=== PATIENT | female | born 1965 | race Caucasian/White ===

== ENCOUNTER 2019-08-25 19:59 | Emergency (ER) | payer OTHER, SELFPAY ==
[2019-08-25 20:15] VITALS: BP 147/73; PULSE 75; RESP 20; TEMP 37.4; O2SAT 100
[2019-08-25] MEDS: LIDOCAINE HCL 1% LOCAL INJ 20 ML VIAL INFILTRATE (20:25)
[2019-08-25] MEDS: TETANUS,DIPHTHERIA,AC PERTUSSIS ADULT 0.5 ML (ADACEL) IM (20:25)
[2019-08-25] MEDS: cefTRIAXone 250 MG VIAL 1000 MG IM (20:25)
--- NOTE | 2019-08-25 20:25 | ED.LOWEXIN ---
HPI - Extremity Injury (Lower) General Chief Complaint: Extremity Injury, Lower Stated Complaint: L/leg shine pn History of Present Illness HPI Narrative: This is a 53-year-old female that hit her left suarez approximately a week ago with progressively gotten red and warm patient has been applying heat to the area there is a small area that is enlarged it looks like it may want to open. Patient states that is causing pain in her leg it is over the past 2 days it is continued to get worse she is Related Data Home Medications Medication Instructions Recorded Confirmed norgestimate-ethinyl estradiol 1 tablet PO DAILY 08/25/19 08/25/19 [Tri-Linyah] Allergies Allergy/AdvReac Type Severity Reaction Status Date / Time No Known Allergies Allergy Mild Verified 08/25/19 20:17 Review of Systems Review of Systems: Narrative: CONSTITUTIONAL: Denies fever, chills, or sweats. EYES: Denies visual changes, redness, or discharge. ENT: Denies rhinorrhea, congestion, sore throat, or otalgia. CARDIOVASCULAR:Denies chest pain, palpitations, or edema. RESPIRATORY: Denies cough or dyspnea. GASTROINTESTINAL: Denies abdominal pain, nausea, vomiting, or diarrhea. GENITOURINARY: Denies dysuria or hematuria. SKIN:[Denies rash or itching. left suarez pain and redness and warm to touch MUSCULOSKELETAL:Denies back pain, joint pain, or myalgia. NEUROLOGIC: Denies headache, numbness, or weakness. PSYCHIATRIC:Denies anxiety or depression PMFSH Family History Family History (Updated 01/17/16 @ 23:19 by DOCTOR UNKNOWN) Mother Hypertension Family history of malignant neoplasm of breast in first degree relative Father Family history of gastrointestinal disorder Social History Social History Alcohol intake: current Comments At time as signature, I have reviewed and agree with nursing past medical, social, surgical and family history. Please see nursing chart for further information. There is no relevant family history pertinent to the presenting complaint. Exam Narrative: Exam Narrative: GENERAL:Well-appearing, well-nourished, and in no acute distress. HEAD:Normocephalic, atraumatic. EYES: PERRLA and EOMI. ENT: Nares clear, no rhinorrhea or epistaxis. Mucous membranes moist. NECK: Supple. CHEST: Clear to auscultation. No respiratory distress. HEART: Regular rate and rhythm. No murmur heard. Normal peripheral pulses. ABDOMEN: Soft, nontender, nondistended, normal active bowel sounds. EXTREMITIES: Normal range of motion. positive edema.erythema with warmth and small on the suarez of the right leg. SKIN: Warm, dry, no rash. NEURO: No focal deficits. Alert and oriented x3. Course Vital Signs Vital signs: Vital Signs Temperature 99.3 F 08/25/19 20:15 Pulse Rate 75 08/25/19 20:15 Respiratory Rate 20 08/25/19 20:15 Blood Pressure 147/73 H 08/25/19 20:15 Pulse Oximetry 100 08/25/19 20:15 Temperature 99.3 F 08/25/19 20:15 Pulse Rate 75 08/25/19 20:15 Respiratory Rate 20 08/25/19 20:15 Blood Pressure 147/73 H 08/25/19 20:15 Pulse Oximetry 100 08/25/19 20:15 Discharge Plan Discharge Clinical Impression: Cellulitis and abscess of left leg Patient Disposition: Home, Self-Care Condition: Stable Instructions: Antibiotic Form, Cellulitis (ED) Additional Instructions: Make sure you elevate your leg as much as possible You may use ice do not place directly on the skin and no more than 20 minutes at a time. Prescriptions: New sulfamethoxazole-trimethoprim 800-160 mg tablet 1 tablet PO Q12H 10 Days Qty: 20 RF: 0 ibuprofen 800 mg tablet 800 mg PO Q6H PRN (Reason: pain) Qty: 20 RF: 0 No Action norgestimate-ethinyl estradiol [Tri-Linyah] 0.18/0.215/0.25 mg-35 mcg (28) tablet 1 tablet PO DAILY RF: 0 Follow-up/Referrals: Alpesh Beyer DO [Primary Care Provider] - Time of Disposition: Discharge Date/Time: 08/25/19 20:35
== END 2019-08-25 20:35 | disposition home or self-care (01) ==
PROVIDERS: Emergency Provider Nurse Practitioner Family; PCP Internal Medicine
DX: L03.116 Cellulitis of left lower limb (principal); L02.416 Cutaneous abscess of left lower limb; Z23 Encounter for immunization
CPT/HCPCS: 90471; 90715; 96372; 99213; G0463; J0696

== ENCOUNTER 2020-03-27 08:18 | Outpatient (CLI) | payer OTHER, SELFPAY ==
--- NOTE | ~2020-03-27 | MM_ITS ---
EXAMINATION: MM screening foster BI w ana HISTORY: Screening TECHNIQUE: Craniocaudal and mediolateral oblique 3-D tomosynthesis images were obtained and synthetic 2-D images were generated. CAD analysis was submitted and interpreted. COMPARISON: Comparison to multiple prior studies sequentially, with oldest reviewed study dated 11/11. BREAST PARENCHYMAL COMPOSITION: The breasts are heterogeneously dense, which may obscure small masses . FINDINGS: There is developing asymmetry laterally in the left breast on CC view. There are stable rig ht breast calcifications. There is no evidence of suspicious mass, calcification, or architectural di stortion to suggest malignancy in either breast. There has been no suspicious interval change. IMPRESSION: 1. Developing left breast asymmetry. 2. Additional mammographic views and possible breast ultrasound are recommended. BI-RADS Category 0: Incomplete: Needs additional imaging evaluation. Reviewed, dictated and finalized at location A. IMPRESSION: 1. Developing left breast asymmetry. 2. Additional mammographic views and possible breast ultrasound are recommended . BI-RADS Category 0: Incomplete: Needs additional imaging evaluation.
== END 2020-03-27 08:19 | disposition home or self-care (01) ==
LOC: ANHIMG 08:21
PROVIDERS: PCP Internal Medicine; Visit Provider Obstetrics & Gynecology
DX: Z12.31 Encounter for screening mammogram for malignant neoplasm of breast (principal); R92.8 Other abnormal and inconclusive findings on diagnostic imaging of breast
CPT/HCPCS: 77063; 77067

== ENCOUNTER 2020-04-11 13:47 | Outpatient (CLI) | payer OTHER, SELFPAY ==
--- NOTE | ~2020-04-11 | MMUS_ITS ---
EXAMINATION: MM diagnostic foster LT w ana, US breast LT limited HISTORY: Developing left breast asymmetry in the lateral left breast on screening CC view of 0 TECHNIQUE: Additional 3-D tomosynthesis images of were performed and synthetic 2-D images were genera shane. CAD analysis was submitted and interpreted. High resolution left upper outer quadrant and lower outer quadrant breast ultrasound was performed. COMPARISON: 03/27/2020, 12/23/2018, 11/05/2017, 10/28/2016 bilateral digital screening mammogram examinati ons BREAST PARENCHYMAL COMPOSITION: The breasts are heterogeneously dense, which may obscure small masses . FINDINGS: MAMMOGRAPHIC FINDINGS: There are some likely benign microcalcifications posteriorly in the outer left breast. Upper outer quadrant and lower outer quadrant left breast ultrasound examination is performe d. No suspicious mass or architectural distortion, malignant calcification, skin thickening or retractio n of either breast is noted otherwise. ULTRASOUND: There is dense echotexture of the left breast. There are scattered sonolucent and hypoechoic areas wi thout internal vascularity or suspicious shadowing, the largest situated at 4:00, measuring 4 x 8 x 9 mm. No suspicious solid mass lesion or shadowing is evident. IMPRESSION: 1. Probable benign calcifications and probable benign scattered subcentimeter sonolucent and hypoecho ic lesions of left breast 2. 6 month diagnostic left mammogram and left breast ultrasound examination are recommended BI-RADS category 3, probably benign findings. Reviewed, dictated and finalized at location A. IMPRESSION: 1. Probable benign calcifications and probable benign scattered subcentimeter s onolucent and hypoechoic lesions of left breast 2. 6 month diagnostic left mammogram and left breast ultrasound examination are recommended BI-RADS category 3, probably benign findings.
== END 2020-04-11 13:48 | disposition home or self-care (01) ==
LOC: ANHIMG 13:49
PROVIDERS: PCP Internal Medicine; Visit Provider Obstetrics & Gynecology
DX: R92.8 Other abnormal and inconclusive findings on diagnostic imaging of breast (principal)
CPT/HCPCS: 76642; 77061; 77065; G0279

== ENCOUNTER 2020-04-22 13:31 | Outpatient (CLI) | payer OTHER, SELFPAY ==
[2020-04-25 12:41] LABS: Testosterone Free 0.7 pg/mL (0.1-6.4); Testosterone Total 6 ng/dL (2-45)
[2020-04-26 14:21] LABS: FSH 152.8 mIU/mL (***)
== END 2020-04-22 13:32 | disposition home or self-care (01) ==
PROVIDERS: PCP Internal Medicine; Visit Provider Obstetrics & Gynecology
DX: N95.1 Menopausal and female climacteric states (principal)
CPT/HCPCS: 36415; 83001; 84402; 84403

== ENCOUNTER 2020-09-11 08:47 | Outpatient (CLI) | payer OTHER, BC, SELFPAY ==
[2020-09-11 09:24] LABS: Alanine Aminotransferase 18 U/L (4-35); Alkaline Phosphatase 35 U/L (38-126); Anion Gap 3 mmol/L (8-16); Aspartate Amino Transferase 30 U/L (14-36); Bilirubin,Total 0.3 mg/dL (0.2-1.3); Blood Urea Nitrogen 19 mg/dL (7-17); Calcium 8.7 mg/dL (8.4-10.2); Carbon Dioxide 30 mmol/L (22-30); Chloride 106 mmol/L (98-107); Cholesterol 174 mg/dL (0-200); Estimated Glomerular Filt Rate > 60; Glucose 101 mg/dL (65-105); HDL Direct 69 mg/dL; Sodium 139 mmol/L (137-145); Triglycerides 33 mg/dL (<150)
[2020-09-11 09:35] LABS: LDL Cholesterol Direct 78 mg/dL
[2020-09-11 10:17] LABS: Vitamin D 25 Hydroxy 80.9 ng/mL
== END 2020-09-11 08:48 | disposition home or self-care (01) ==
PROVIDERS: PCP Internal Medicine; Visit Provider Internal Medicine
DX: Z13.21 Encounter for screening for nutritional disorder (principal); Z00.00 Encounter for general adult medical examination without abnormal findings
CPT/HCPCS: 36415; 80053; 80061; 82306

== ENCOUNTER 2020-10-21 13:32 | Outpatient (CLI) | payer OTHER, BC, SELFPAY ==
--- NOTE | ~2020-10-21 | MMUS_ITS ---
EXAMINATION: MM diagnostic foster LT w ana, US breast LT limited HISTORY: Follow-up left breast calcifications and mass. TECHNIQUE: Additional 3-D tomosynthesis images of the left breast were performed and synthetic 2-D im ages were generated. CAD analysis was submitted and interpreted. High resolution Limited left breast ultrasound was performed. COMPARISON: Comparison to multiple prior studies sequentially, with oldest reviewed study dated 11/05. BREAST PARENCHYMAL COMPOSITION: The breasts are heterogenously dense, which may obscure small masses. FINDINGS: MAMMOGRAPHIC FINDINGS: There are clustered calcifications in the upper outer quadrant of the left breast which have are rela tively monomorphic appearance and some of which layer on the medial lateral view and MLO view, most l ikely benign milk of calcium. The ULTRASOUND: Limited left breast ultrasound: At 6:00, 2 cm from the nipple, there is a 5 mm complicated cyst. At 4 :00 in the subareolar location there is a 3 mm cyst. At 3:00, 4 cm from the nipple there is an oval h ypoechoic mass with circumscribed margins, parallel oriented dictation, no posterior features, most l ikely benign. At 3:00, 4 cm from the nipple there is a 9 mm cyst. At 2:00, 6 cm from the nipple there is a 3 mm cyst. At 2:00, 4 cm from the nipple there is a 5 mm cyst. At 2:00, 3 cm there is 3 mm cyst . At 2:00, 3 cm from the nipple there is a 3 mm cyst. IMPRESSION: 1. Probable benign left breast findings. 2. Recommend 6 month follow-up diagnostic bilateral mammogram and left breast ultrasound recommended BI-RADS category 3, probably benign findings. Reviewed, dictated and finalized at location A. IMPRESSION: 1. Probable benign left breast findings. 2. Recommend 6 month follow-up diagnostic bilateral mammogram and left breast u ltrasound recommended BI-RADS category 3, probably benign findings.
== END 2020-10-21 13:33 | disposition home or self-care (01) ==
LOC: ANHIMG 13:33
PROVIDERS: PCP Internal Medicine; Visit Provider Obstetrics & Gynecology
DX: N63.25 Unspecified lump in the left breast, overlapping quadrants (principal); N60.02 Solitary cyst of left breast
CPT/HCPCS: 76642; 77061; 77065; G0279

== ENCOUNTER 2021-01-20 14:42 | Outpatient (CLI) | payer OTHER, BC, SELFPAY ==
--- NOTE | ~2021-01-20 | DEXA_ITS ---
Bone Density Report Name: Elmira Suarez Age: 55 Sex: Female Ethnicity: White Date of : 1965 Indication: osteoporosis; height loss; postmenopausal Referring Provider: JAZLYN KENDALL Study: Bone densitometry was performed. Exam Date: January 20, 2021 Accession number: [id number] Bone Density: Region BMD T-score Z-score Classification AP Spine (L1-L4) 0.710 -3.1 -1.9 Osteoporosis Femoral Neck (Left) 0.598 -2.3 -1.2 Osteopenia Total Hip (Left) 0.723 -1.8 -1.1 Osteopenia Total Hip Bilateral Avg 0.730 -1.8 -1.1 Osteopenia Femoral Neck (Right) 0.593 -2.3 -1.2 Osteopenia Total Hip (Right) 0.737 -1.7 -1.0 Osteopenia World Health Organization criteria for BMD impression classify patients as: Normal (T-score at or above -1.0), Osteopenia (T-score between -1.0 and -2.5), or Osteoporosis (T-score at or below -2.5). 10-year Fracture Risk: FRAX not reported because: Premenopausal woman Some T-score for Spine Total or Hip Total or Femoral Neck at or below -2.5 Previous Exams: Region Exam Age BMD T-score BMD Change BMD Change Date g/cm2 vs Baseline vs Previous AP Spine(L1-L4) 01/20/2021 55 0.710 -3.1 -0.059(-7.7%)* -0.059(-7.7%)* 12/23/2018 52 0.769 -2.5 Total Hip(Left) 01/20/2021 55 0.723 -1.8 -0.088(-10.9%) -0.088(-10.9%) 12/23/2018 52 0.811 -1.1 Total Hip(Right) 01/20/2021 55 0.737 -1.7 -0.055(-7.0%)* -0.055(-7.0%)* 12/23/2018 52 0.792 -1.2 *Denotes significance at 95% confidence level, LSC for AP Spine = 0.022 g/cm2, LSC for Total Hip = 0.027 g/cm2 Clinical Information Provided by Patient: Has used the following medications: Calcium Patient maximum height was 67 Drinks caffeinated beverages Onset of menses at age 11 Premenopausal Number of children 1 Impression: The patient's bone mass is within expected range for age, gender and ethnicity. The BMD for the AP Spine(L1-L4) decreased, changing by -7.7% since the last DXA exam. The BMD for the Total Hip(Left) decreased, changing by -10.9% since the last DXA exam. The BMD for the Total Hip(Right) decreased, changing by -7.0% since the last DXA exam. Discussion: BONE DENSITY IS WITHIN EXPECTED LIMITS FOR AGE, SEX AND RACE. Bone density is within expected limits for age, sex and race at all sites measured. The patient should follow a healthful lifestyle (good nutrition with adequate calcium and vitamin D, and appropriate weight-bearing exercise). Follow-Up: Consider a repeat BMD and Vertebra
== END 2021-01-20 14:43 | disposition home or self-care (01) ==
LOC: ANHIMG 14:47
PROVIDERS: PCP Internal Medicine; Visit Provider Internal Medicine
DX: Z78.0 Asymptomatic menopausal state (principal); M85.89 Other specified disorders of bone density and structure, multiple sites
CPT/HCPCS: 77080

== ENCOUNTER 2021-04-30 12:48 | Outpatient (CLI) | payer OTHER, SELFPAY ==
--- NOTE | ~2021-04-30 | MMUS_ITS ---
EXAMINATION: MM diagnostic foster BI w ana, US breast BI complete HISTORY: Probable benign left breast findings reported on 11/07/2020 diagnostic left mammogram and [place] ited left breast ultrasound TECHNIQUE: ML, MLO and craniocaudal 3-D tomosynthesis images of both breasts were performed and synth etic 2-D images were generated. Magnification views of both breasts. CAD analysis was submitted and i nterpreted. High resolution bilateral complete breast ultrasound including all 4 quadrants and subare olar area of was performed. COMPARISON: 11/07/2020 and 04/11/2020 diagnostic left mammogram and limited left breast ultrasound exa minations 03/27/2020, 12/23/2018 bilateral screening mammogram examinations Breast parenchymal composition: There are scattered areas of fibroglandular density. FINDINGS: MAMMOGRAPHIC FINDINGS: Bilateral benign calcifications again noted. No suspicious mass or architectural distortion, malignan t calcification, skin thickening or retraction or significant new or developing density is detected. ULTRASOUND: No suspicious solid lesion or suspicious shadowing of either breast is detected. Right br east: 10:00 4 cm from nipple: 4.2 x 2.4 mm cyst Left breast: 2.6 x 2.5 mm cyst at 12:00 subareolar area. 1:00 2 cm from nipple: Approximately 2 mm cyst 1:00 4 cm from nipple: 1.8 mm cyst 2:00 4 cm from nipple: 9 x 2.5 mm cyst 3:00 6 cm from nipple: 6.2 x 3.7 mm multilocular cyst 5:00 3 cm from nipple: Parallel circumscribed hypoechoic 9.4 x 3.8 x 10.8 mm lesion without internal vascularity or posterior shadowing. The appearance is benign. IMPRESSION: 1. Benign findings; no mammographic evidence of malignancy 2. Routine annual mammographic screening is recommended BI-RADS Category 2: Benign finding(s). Reviewed, dictated and finalized at location A. LATHE OPERATOR IMPRESSION: 1. Benign findings; no mammographic evidence of malignancy 2. Routine annual mammographic screening is recommended BI-RADS Category 2: Benign finding(s).
== END 2021-04-30 12:49 | disposition home or self-care (01) ==
LOC: ANHIMG 12:49
PROVIDERS: PCP Internal Medicine; Visit Provider Obstetrics & Gynecology
DX: N63.23 Unspecified lump in the left breast, lower outer quadrant (principal); N60.02 Solitary cyst of left breast
CPT/HCPCS: 76641; 77062; 77066; G0279

== ENCOUNTER 2021-09-24 08:04 | Outpatient (CLI) | payer BC, SELFPAY ==
[2021-09-24 08:29] LABS: Basophils Absolute Auto 0.1 K/mm3 (0.0-0.1); Basophils Percent Auto 1.4 % (0.2-1.2); Eosinophils Absolute Auto 0.4 K/mm3 (0-0.3); Hematocrit 38.9 % (37.0-47.0); Hemoglobin 12.7 g/dL (12.0-15.0); Immature Granulocyte Absolute 0.01 K/mm3 (0.00-0.031); Immature Granulocyte Percent A 0.2 % (0-0.5); Lymphocytes Absolute Auto 2.28 K/mm3 (0.9-3.2); Lymphocytes Percent Auto 35.1 % (18.3-44.2); Mean Corpuscular HGB Conc 32.6 g/dl (32-36); Mean Corpuscular Hemoglobin 30.9 pg (26-34); Mean Corpuscular Volume 94.6 fl (80-100); Mean Platelet Volume 9.1 fl (7.4-10.4); Monocytes Absolute Auto 0.6 K/mm3 (0.1-0.6); Monocytes Percent Auto 9.1 % (2.6-8.5); Neutrophils Absolute Auto 3.1 K/mm3 (1.3-6.7); Neutrophils Percent Auto 48.2 % (45.5-73.1); Platelet Count Result 259 k/mm3 (150-375); Red Blood Count 4.11 M/mm3 (4.2-5.4); White Blood Count 6.5 K/mm3 (4.5-10.0)
[2021-09-24 08:44] LABS: Cholesterol 173 mg/dL (0-200); HDL Direct 64 mg/dL; Triglycerides 42 mg/dL (<150)
[2021-09-24 09:03] LABS: LDL Cholesterol Direct 77 mg/dL
[2021-09-24 09:27] LABS: Vitamin D 25 Hydroxy 89.9 ng/mL
== END 2021-09-24 08:05 | disposition home or self-care (01) ==
LOC: ANHLAB 08:07
PROVIDERS: PCP Internal Medicine; Visit Provider Internal Medicine
DX: E55.9 Vitamin D deficiency, unspecified (principal); E78.5 Hyperlipidemia, unspecified; Z00.00 Encounter for general adult medical examination without abnormal findings
CPT/HCPCS: 36415; 80061; 82306; 85025

== ENCOUNTER 2022-04-02 01:56 | Day surgery (SDC) | payer BC, SELFPAY ==
[2022-03-18 11:22] VITALS: BMI 25.7
[2022-04-02 07:17] VITALS: BP 122/85; PULSE 68; RESP 20; TEMP 36.7; O2SAT 100
[2022-04-02] MEDS: LACTATED RINGERS 1,000 ML 150 ML IV CONT (07:26)
--- NOTE | 2022-04-02 07:53 | PM.HPGS ---
History of Present Illness History of Present Illness Consent: Risks, benefits, and alternatives have been discussed and questions answered. Patient agrees to proceed with procedure. Chief complaint: dysphagia Narrative: Elmira Suarez is a 56 year old female Presents for EGD. Patient has a history of difficulty swallowing of food catching in mid substernal portion the chest. This has worsened over recent months. Patient does have a prior history of distal esophageal web dilated in 2005. For a period of time after that she was maintained on proton pump inhibitor therapy. This eventually was stopped after 10 years. She denies any significant history of heartburn reflux presently. Patient presents today for EGD to assess difficulty swallowing. Review of Systems Review of Systems: Review of systems noncontributory. [facility] Past Medical History Medical History Acid reflux History of 1977 Normal colonoscopy Osteopenia Osteoporosis Vaginal delivery x1 Surgical History Surgical History H/O breast biopsy [place] teeth removed Family History Family History Mother Hypertension Family history of malignant neoplasm of breast in first degree relative Father Family history of gastrointestinal disorder Grandparent Carcinoma, lung Social History Social History (Updated 02/25/22 @ 08:30 by Chelsea Blair [facility]) Smoking packs per day: 1 Smoking cigarettes per day: 20.0 Years smoked: 15 Smoking pack-years: 15.00 Smoking status: Former smoker Tobacco type: cigarettes Second hand tobacco smoke exposure: No Smoking end date: 02/20/96 Alcohol intake: current Drinks per week: 7 Alcohol use details: glass of wine every day usually Substance use: never Substance use type: does not use Living arrangements: with family Spiritual care concerns: No Meds Home Medications and Allergies Home Medications Medication Instructions Recorded Confirmed Type ascorbate calcium (vitamin C) 500 500 mg PO DAILY 09/25/20 03/18/22 History mg tablet calcium carbonate 600 mg calcium 333 mg PO DAILY 09/25/20 03/18/22 History (1,500 mg) tablet (Calcium) microfibril. collagen hemostat 1 applic topical 2XW 09/25/20 03/18/22 History multivitamin (Multiple Vitamins 1 tablet PO DAILY 09/25/20 03/18/22 History tablet) glucosamine 750 mg-chondroit 100 1 tablet PO BID 10/01/21 03/18/22 History mg-msm-D3 25 [id number] bor tablet raloxifene 60 mg tablet 60 mg PO DAILY 02/25/22 03/18/22 History Allergies Allergy/AdvReac Type Severity Reaction Status Date / Time codeine AdvReac Intermediate Dizziness Verified 04/02/22 07:16 Vital Signs Vital Signs - 24 hr 04/02/22 07:17 Temperature 98.1 F Pulse Rate 68 Respiratory Rate 20 Blood Pressure 122/85 Pulse Oximetry 100 Oxygen Delivery Room Air Exam Narrative: Physical exam reveals patient be alert. Vital signs stable. HEENT exam is unremarkable. Patient is anicteric. Lungs are clear to auscultation and percussion. Heart is without murmur or extra sounds. Abdomen bowel sounds are present soft nontender with no hepatosplenomegaly. Assessment and Plan Assessment and plan (1) Dysphagia: Code(s): R13.10 - Dysphagia, unspecified Status: Acute Assessment and Plan: Patient presents with difficulty swallowing. Food catches mid substernal portion the chest. Patient has a history of esophageal web secondary to acid reflux in the past. Plan is for EGD to assess more thoroughly. and possibly for dilatation. Further recommendations may be given after endoscopy
--- NOTE | 2022-04-02 08:09 | WPDANESEPPF ---
Anes - Initial Pre Proc Eval Procedure: Operation Date: 04/02/22 08:30 Proposed Procedures p Esophagogastroduodenoscopy - Corey Wiggins MD Date/Time: 04/02/22 08:09 Surgeon: Corey Wiggins MD Pre Op Diagnosis: dysphagia Patient Data Age: 56 Gender: F Height: 1.65 m Weight: 71.6 kg Last Vital Signs Temp 98.1 F 04/02/22 07:17 Pulse 68 04/02/22 07:17 Resp 20 04/02/22 07:17 BP 122/85 04/02/22 07:17 Pulse Ox 100 04/02/22 07:17 O2 Del Method Room Air 04/02/22 07:17 Allergies Allergy/AdvReac Type Severity Reaction Status Date / Time codeine AdvReac Intermediate Dizziness Verified 04/02/22 07:16 Home Medications Medication Instructions Recorded Confirmed Type ascorbate calcium (vitamin C) 500 500 mg PO DAILY 09/25/20 03/18/22 History mg tablet calcium carbonate 600 mg calcium 333 mg PO DAILY 09/25/20 03/18/22 History (1,500 mg) tablet (Calcium) microfibril. collagen hemostat 1 applic topical 2XW 09/25/20 03/18/22 History multivitamin (Multiple Vitamins 1 tablet PO DAILY 09/25/20 03/18/22 History tablet) glucosamine 750 mg-chondroit 100 1 tablet PO BID 10/01/21 03/18/22 History mg-msm-D3 25 xju-gobl-mno bor tablet raloxifene 60 mg tablet 60 mg PO DAILY 02/25/22 03/18/22 History Patient hx anesthesia problems: none Family hx anesthesia problems: none Results Review: All pre-operative results and documents have been reviewed as part of the pre-operative evaluation. [facility] Past Medical History Medical History Acid reflux History of 1977 Normal colonoscopy Osteopenia Osteoporosis Vaginal delivery x1 Surgical History Surgical History H/O breast biopsy [place] teeth removed Family History Family History Mother Hypertension Family history of malignant neoplasm of breast in first degree relative Father Family history of gastrointestinal disorder Grandparent Carcinoma, lung Social History Social History (Updated 02/25/22 @ 08:30 by Chelsea Blair [facility]) Smoking packs per day: 1 Smoking cigarettes per day: 20.0 Years smoked: 15 Smoking pack-years: 15.00 Smoking status: Former smoker Tobacco type: cigarettes Second hand tobacco smoke exposure: No Smoking end date: 02/20/96 Alcohol intake: current Drinks per week: 7 Alcohol use details: glass of wine every day usually Substance use: never Substance use type: does not use Living arrangements: with family Spiritual care concerns: No Anes - Eval Final PreProcedure Day of Procedure 04/02/22 08:09 Patient weight: normal Heart: regular rate and rhythm Lungs: clear to auscultation Airway: Mallampati scale class II Neurological: alert and oriented Last oral intake: >/= 8 hours ASA classification: II Emergent: no Anesthetic plan: proceed Anesthesia type and monitoring: general GIVS and standard monitoring Results Review: All pre-operative results and documents have been reviewed as part of the pre-operative evaluation. Informed Consent: The patient's anesthetic plan and its attendant risks and benefits were discussed with the patient/family/POA. Questions were solicited and answers provided to the satisfaction of the patient/family/POA.
[2022-04-02] MEDS: BENZOCAINE (*SP) 60 ML SPRAY CAN (HURRICAINE) 1 SPRAY MUCOUS MEM (08:34)
[2022-04-02 08:42] VITALS: BP 102/81; PULSE 67; RESP 24; O2SAT 99
[2022-04-02 08:52] VITALS: BP 107/64; PULSE 63; RESP 21; O2SAT 99
[2022-04-02 09:02] VITALS: BP 107/64; PULSE 60; RESP 21; O2SAT 99
== END 2022-04-02 09:11 | disposition home or self-care (01) ==
PROVIDERS: PCP Internal Medicine; Visit Provider Internal Medicine Gastroenterology
PROC: 0DJ08ZZ Inspection of Upper Intestinal Tract, Via Natural or Artificial Opening Endoscopic (ICD-10-PCS; CPT 43235; principal; 2022-04-02 08:30)
DX: Q39.4 Esophageal web (principal); K21.9 Gastro-esophageal reflux disease without esophagitis; M81.0 Age-related osteoporosis without current pathological fracture; Z87.891 Personal history of nicotine dependence
CPT/HCPCS: 43450; 43235; J2704; J7120

== ENCOUNTER 2022-04-08 09:02 | Outpatient (CLI) | payer BC, SELFPAY ==
--- NOTE | ~2022-04-08 | MM_ITS ---
EXAMINATION: MM screening foster BI w ana HISTORY: Screening TECHNIQUE: Craniocaudal and mediolateral oblique 3-D tomosynthesis images were obtained and synthetic 2-D images were generated. CAD analysis was submitted and interpreted. COMPARISON: Comparison to multiple prior studies sequentially, with oldest reviewed study dated 11/10. BREAST PARENCHYMAL COMPOSITION: FINDINGS: Focal asymmetry medially in the left breast adjacent to the chest wall is unchanged, most c ompatible with sternalis muscle. There is no evidence of suspicious mass, calcification, or teradata architect ural distortion to suggest malignancy in either breast. There has been no suspicious interval change. IMPRESSION: 1. No mammographic evidence of malignancy. 2. Recommend routine screening mammography in one year. BI-RADS Category 2: Benign finding(s). Reviewed, dictated and finalized at location A.
== END 2022-04-08 09:03 | disposition home or self-care (01) ==
LOC: ANHIMG 09:05
PROVIDERS: PCP Internal Medicine; Visit Provider Obstetrics & Gynecology
DX: Z12.31 Encounter for screening mammogram for malignant neoplasm of breast (principal)
CPT/HCPCS: 77063; 77067

== ENCOUNTER 2023-05-05 14:01 | Outpatient (CLI) | payer BC, SELFPAY ==
--- NOTE | ~2023-05-05 | MM_ITS ---
EXAMINATION: MM screening foster BI w ana HISTORY: Screening mammogram, family history of breast cancer in her mother. TECHNIQUE: Craniocaudal and mediolateral oblique 3-D tomosynthesis images were obtained and synthetic 2-D images were generated. CAD analysis was submitted and interpreted. COMPARISON: 04/08/2022, 04/30/2021, 10/21/2020 BREAST PARENCHYMAL COMPOSITION: The breasts are heterogeneously dense, which may obscure small masses . FINDINGS: RIGHT BREAST: There are grouped calcifications in the middle third of the lower breast at the 6:00 lo cation approximately 6 cm from the nipple. LEFT BREAST: No suspicious mass, calcification, or architectural distortion are identified to suggest malignancy. There has been no suspicious interval change. IMPRESSION: 1. Right breast calcifications. 2. Magnification views are recommended. BI-RADS Category 0: Incomplete: Needs additional imaging evaluation. Reviewed, dictated and finalized at location A. R
== END 2023-05-05 14:02 | disposition home or self-care (01) ==
PROVIDERS: PCP Family Medicine; Visit Provider Nurse Practitioner
DX: Z12.31 Encounter for screening mammogram for malignant neoplasm of breast (principal); R92.8 Other abnormal and inconclusive findings on diagnostic imaging of breast
CPT/HCPCS: 77063; 77067

== ENCOUNTER 2023-06-02 10:19 | Outpatient (CLI) | payer BC, SELFPAY ==
--- NOTE | ~2023-06-02 | MMUS_ITS ---
EXAMINATION: MM diagnostic mammo unilat RT, US breast RT limited HISTORY: Follow-up right breast calcifications TECHNIQUE: Additional 3-D tomosynthesis images of the right breast were performed and synthetic 2-D i mages were generated. CAD analysis was submitted and interpreted. High resolution Limited right breas t ultrasound was performed. COMPARISON: 05/05/2023 BREAST PARENCHYMAL COMPOSITION: Breast composed of scattered areas of fibroglandular density FINDINGS: MAMMOGRAPHIC FINDINGS: There are clustered indeterminate calcifications lower central aspect of the right breast. No discret e mass identified. No architectural distortion. ULTRASOUND: Limited right breast ultrasound: There are mildly prominent ducts at the 6:00 position of the left br east. No discrete solid or cystic masses are identified. IMPRESSION: 1. Clustered indeterminate right breast calcifications lower central aspect of the right breast, midd le third. 2. Stereotactic right breast biopsy recommended. BI-RADS category 4, suspicious findings. Reviewed, dictated and finalized at location A. ETING TEACHER IMPRESSION: 1. Clustered indeterminate right breast calcifications lower central aspect of the right breast, middle third. 2. Stereotactic right breast biopsy recommended. BI-RADS category 4, suspicious findings.
== END 2023-06-02 10:20 | disposition home or self-care (01) ==
LOC: ANHIMG 10:20
PROVIDERS: PCP Family Medicine; Visit Provider Nurse Practitioner
DX: R92.8 Other abnormal and inconclusive findings on diagnostic imaging of breast (principal)
CPT/HCPCS: 76642; 77065

== ENCOUNTER 2023-06-22 12:44 | Outpatient (CLI) | payer BC, SELFPAY ==
--- NOTE | ~2023-06-22 | MM_ITS ---
EXAMINATION: MM stereotactic bx RT, MM post biopsy diagnostic RT, MM stereotactic specimen RT DATE: 06/22/2023 15:05 (accession [id number]), 06/22/2023 15:06 (accession [id number]), 06/22 15:05 (accession [id number]) INDICATION: Indeterminate right breast. Stereotactic core biopsy is requested evaluate for malignancy . TECHNIQUE AND FINDINGS: The risks and potential benefits of the procedure were discussed with the patient including bleeding and infection. A time out was performed to verify the patient's name, date of and site of proce dure to be performed. The patient was placed in the prone position with the right breast in mediolate ral compression, and the area of interest was localized and targeted utilizing digital imaging with s tereotaxis. After sterile preparation of the skin, 2 cc of 1% lidocaine were utilized for local anesthesia at the skin puncture site and 16 cc of 1% lidocaine with epinephrine were utilized for deeper local anesthe daron about the biopsy site. A 9G Empressr vacuum assisted biopsy needle was advanced to the level of the calcification of interest from a medial approach utilizing stereotactic guidance and a total of six t issue core biopsies were obtained. A specimen radiograph demonstrates that the calcifications of interest are included within the tissue cores. A tissue marker clip was then placed at the biopsy site. The needle was removed and hemostas is was achieved. A sterile bandage was applied. The patient tolerated procedure well and there was no evidence of immediate complication. The patient was given verbal instructions to return to the Emerg ency Department in the event of severe breast pain or rapid breast enlargement. Tissue cores were sub mitted to surgical pathology for histologic analysis. A 2-view right unilateral digital mammogram was obtained post procedure and this demonstrates that th e tissue marker clip is in expected position. IMPRESSION: 1. Successful stereotactic biopsy of calcifications at the 6:00 location of the right breast, followe d by tissue marker clip placement Reviewed, dictated and finalized at location A. L WORKER IMPRESSION: 1. Successful stereotactic biopsy of calcifications at the 6:00 location of the right breast, followed by tissue marker clip placement IMPRESSION: 1. Successful stereotactic biopsy of calcifications at the 6:00 location of the right breast, followed by tissue marker clip placement
== END 2023-06-22 12:45 | disposition home or self-care (01) ==
PROVIDERS: PCP Family Medicine; Visit Provider Nurse Practitioner
DX: R92.8 Other abnormal and inconclusive findings on diagnostic imaging of breast (principal)
CPT/HCPCS: 19081; 77065; 88305

== ENCOUNTER 2023-12-22 10:25 | Outpatient (CLI) | payer BC, SELFPAY ==
--- NOTE | ~2023-12-22 | MMUS_ITS ---
EXAMINATION: MM diagnostic foster RT w ana, US breast RT limited HISTORY: 6 month follow-up after biopsy TECHNIQUE: 3-D tomosynthesis images of the right breast were performed and synthetic 2-D images were generated. CAD analysis was submitted and interpreted. High resolution limited right breast ultrasoun d was performed. COMPARISON: 06/02/2023, 05/05/2023, 04/08/2022 BREAST PARENCHYMAL COMPOSITION:Dense: The breasts are heterogeneously dense, which may obscure small masses. FINDINGS: MAMMOGRAPHIC FINDINGS: There is a 7 mm ovoid low-density mass at the site of the biopsy clip in the 6:[address] Mild surrounding benign calcific lesion are present. No other mass lesion or distortion seen. ULTRASOUND: At the 6:00 position right breast, at the biopsy area, there is a 1.0 x 0.4 x 0.7 cm circumscribed wi leia than tall anechoic cyst, with biopsy clip within it. IMPRESSION: No evidence for malignancy. Benign cyst at the biopsy site at the 6:00 position right breast, as det ian above. BI-RADS Category 2: Benign finding(s). Reviewed, dictated and finalized at location M. IMPRESSION: No evidence for malignancy. Benign cyst at the biopsy site at the 6:00 positio n right breast, as detailed above. BI-RADS Category 2: Benign finding(s).
== END 2023-12-22 10:26 | disposition home or self-care (01) ==
PROVIDERS: PCP Family Medicine; Visit Provider Physician Assistant Surgical
DX: R92.8 Other abnormal and inconclusive findings on diagnostic imaging of breast (principal); N60.01 Solitary cyst of right breast
CPT/HCPCS: 76642; 77061; 77065; G0279

== ENCOUNTER 2024-05-31 10:16 | Outpatient (CLI) | payer BC, SELFPAY ==
--- NOTE | ~2024-05-31 | MM_ITS ---
EXAMINATION: MM diagnostic foster BI w ana HISTORY: Follow-up breast examination. Recent benign biopsy. TECHNIQUE: Additional 3-D tomosynthesis images of the breasts were performed and synthetic 2-D images were generated. CAD analysis was submitted and interpreted. COMPARISON: Comparison to multiple prior studies sequentially, with oldest reviewed study dated 04/21. BREAST PARENCHYMAL COMPOSITION: Not dense: There are scattered areas of fibroglandular density. FINDINGS: The breasts are stable. Tissue marker located in a small mass in the lower central aspect o f the right breast, consistent with previous benign biopsy site. No new masses, calcifications or arc hitectural distortion in either breast to suggest malignancy. IMPRESSION: 1. No evidence for malignancy in either breast. 2. Routine yearly screening mammogram and regular clinical breast examination are recommended. BI-RADS Category 2: Benign finding(s). Reviewed, dictated and finalized at location B. EMENT MANAGER IMPRESSION: 1. No evidence for malignancy in either breast. 2. Routine yearly screening mammogram and regular clinical breast examination a re recommended. BI-RADS Category 2: Benign finding(s).
== END 2024-05-31 10:17 | disposition home or self-care (01) ==
LOC: ANHIMG 10:25
PROVIDERS: PCP Obstetrics & Gynecology; Visit Provider Surgery
DX: Z12.31 Encounter for screening mammogram for malignant neoplasm of breast (principal)
CPT/HCPCS: 77062; 77066; G0279

== ENCOUNTER 2024-08-13 17:05 | Emergency (ER) | payer BC, SELFPAY ==
--- OUTSIDE RECORDS SUMMARY | 2024-08-13 17:16 | XMS_ITS | Referral Summary ---
Author Organization [facility] Address [address] [place] [address] Care Team Providers Care Direct Support Worker Name Role Phone Hamlet Garcia MD Primary Care Provider [phone] Allergies Active Allergy Reactions Criticality Noted Date Comments Codeine Dizziness Medium 12/24/2021 Medications multivitamin capsule Take 1 capsule by mouth daily Multivitamin- Vitamin D 2000 international units/ Calcium 250 mg Vitamin D 2000 international units+ 200 international units = total is 2200 international units daily Calcium total is 250 mg +333 mg + Diet = total is 583 mg daily Active calcium carb/magnesium oxid/D3 (CALCIUM CARB-MAG OXIDE-VIT D3 ORAL) Take by mouth Calcium /Mag /zinc = Calcium 333 mg and vitamin D 200 international units Active collagen, hydrolysate, bovine, (collagen, hydr, bovine,, bulk,) 100 % powder With almond milk Active ascorbic acid (ascorbic acid with yan hips) 500 mg tablet,chewable Acti ve calcium carbonate (TUMS ORAL) Take by mouth Some days Active glucosamine sulfate (Glucosamine) 500 mg tablet Take by mouth Ac tive raloxifene (EVISTA) 60 mg tabletIndication s:Age-related osteoporosis without current pathological fracture TAKE 1 TABLET BY MOUTH EVERY DAY 90 tablet 1 03/29/20 24 Active Active Problems No known active problems Social History Tobacco Use Types Packs/Day Years Used Date Smoking Tobacco: Former Smokeless Tobacco: Never Comments:stopped 26 years ag o. Personal Safety Answer Date Recorded Getting School Help Needed Not on file 06/01 Comments Unknown Sex and Gender Information Value Date Recorded Sex Assigned at Not on file Legal Sex Female 9:13 AM IMPROVEMENT ENGINEER Gender Identity Not on file Sexual Orientation Not on file Last Filed Vital Signs Vital Sign Reading Time Taken Comments Blood Pressure - - Pulse - - Temperature - - Respiratory Rate - - Oxygen Saturation - - Inhaled Oxygen Concentration - - Weight 72.3 kg (159 lb 4.8 oz) 01/12/2024 1:38 P M CDT Height 163.8 cm (5' 4.5 ) 01/12/2024 1:38 PM CDT Body Mass Index 26.92 01/12/2024 1:38 PM CDT Plan of Treatment Not on file Insurance ANTHEM ACCESS CHOICE [employer] ACCESS CHOICE Member Subscriber [facility] Name:EricsyedElmira garcia Relation to Subscriber:Self Name:Elmira Suarez Payer ID:[id number] (NAIC) Type:[employer] Address: [address] [place] [address] Care Teams Direct Support Worker Relationship Specialty Start Date End Date Hamlet Garcia MD [address] [address] PCP - General Obstetrics and Gynecology 01/12/24
--- OUTSIDE RECORDS SUMMARY | 2024-08-13 17:16 | XMS_ITS | Clinical Summary ---
Author Organization [facility] [place] Address [address] [address] Phone Care Team Providers Care Communication And Outreach Manager Name Role Phone Deanna Schwartz MD Primary Care Provider [phone] Allergies No known active allergies Medications NORGESTIMATE-ETH INYL ESTRADIOL (TRINESSA, 28, ORAL) Take by mouth. Active omeprazole (PRILOSEC) 20 mg Oral CpDR Take 20 mg by mouth daily. AM Active HYDROcodone-acet aminophen (NORCO) 5-325 mg Oral tablet Take 1 Tab by mouth every 4 hours as needed. 20 Tab 1 05/22/2010 Active Active Problems Patient Care Coordination No te Formatting of this note migh t be different from the original. Pt denies any family hx of ovarian ca Problem Noted Date Diagnosed Date Diffuse cystic mastopathy 06/04/2010 GERD (gastroesophageal reflux disease) Overview (05/21/2010): Currently managed with prilosec Resolved Problems Problem Noted Date Diagnosed Date Resolved Date Trouble swallowing 0 Family History Medical History Relation Name Comments Breast Cancer Mother 54 Relation Name Status Comments Mother Alive Social History Tobacco Use Types Packs/Day Years Used Date Smoking Tobacco: Former Comments:1995 Alcohol Use Standard Drinks/Week Comments Yes 0 (1 standard drink = 0.6 oz pur e alcohol) moderate, 4-5 X/ WK Comments No Sex and Gender Information Value Date Recorded Sex Assigned at Not on file Legal Sex Female 5:57 AM FOOD SCIENCE TECHNICIAN Gender Identity Not on file Sexual Orientation Not on file Occupation Industry Job Start Date Job End Date Not on file Not on file Not on file Not on file Last Filed Vital Signs Vital Sign Reading Time Taken Comments Blood Pressure 108/65 06/04/2010 3:01 PM FOOD SCIENCE TECHNICIAN Pulse 78 06/04/2010 3:01 PM FOOD SCIENCE TECHNICIAN Temperature 36.7 C (98 F) 06/04/2010 3:01 PM FOOD SCIENCE TECHNICIAN Respiratory Rate 16 06/04/2010 3:01 PM FOOD SCIENCE TECHNICIAN Oxygen Saturation 100% 05/22/2010 10:13 AM FOOD SCIENCE TECHNICIAN Inhaled Oxygen Concentration - - Weight 67.6 kg (149 lb) 05/22/2010 6:56 AM FOOD SCIENCE TECHNICIAN Height 167.6 cm (5' 6 ) 05/21/2010 4:44 PM FOOD SCIENCE TECHNICIAN Body Mass Index 24.05 05/21/2010 4:44 PM FOOD SCIENCE TECHNICIAN Plan of Treatment Health Maintenance Due Date Last Done Comments DTAP/TDAP/TD VACCINES (1 - Tdap) 01/01/1984 HEPATITIS B VACCINES (1 of 3 - 19+ 3-dose series) 01/01/1984 CERVICAL CANCER SCREENING 1994 COLORECTAL SCREENING 2009 Colorectal Cancer Screening 2009 FIT-DNA Q 3 years 2009 FIT/FOBT Q 1 year 2009 Flex Sig/CT Colonography Q 5 years 2009 BREAST CANCER SCREENING 05/07/2011 05/07/20 10, 05/02/2010, 04/26/2009, Additional history exists ZOSTER VACCINE (1 of 2) 2014 INFLUENZA VACCINE (#1) 2024 PNEUMOCOCCAL VACCINE 0-64 YEARS Aged Out No longer eligible based on patient's age to complete this topic Procedures Procedure Name Priority Date/Time Associated Diagnosis Comments MAMMO DIAGNOSTIC UNI RIGHT W OR WO CAD Routine 05/07/2010 from Last 3 Months or Most Recently Relevant to Health Maintenance Results * MAMMO DIGITAL DIAG UNI RIGHT (05/07/2010) Anatomical Region Laterality Modality Breast Right Other us Abstract Provider MAMMO ORDERABLES Final Result from Last 3 Months or Most Recently Relevant to Health Maintenance Insurance [employer] [facility] Advance Directives For more information, please contact: [phone] * Full Code (Latest Code Status on File) Date Activated Date Inactivated Comments 05/22/2010 6:51 AM 05/22/2010 1:05 PM Care Teams Communication And Outreach Manager Relationship Specialty Start Date End Date Deanna Schwartz MD [address] [place] [address] PCP - General 06/07/15
--- OUTSIDE RECORDS SUMMARY | 2024-08-13 17:16 | XMS_ITS | Clinical Summary ---
Author Organization [facility] Address [address] [place] [id number] Care Team Providers Care Brake Drum Lathe Operator Name Role Phone Hamlet Garcia MD Primary Care Provider [phone] Allergies Active Allergy Reactions Criticality Noted Date [...] Active Active Problems No known active problems Family History Medical History Relation Name Comments Osteopenia Mother Broken bones Neg Hx Hip fracture Neg Hx Kyphosis Neg Hx Osteoporosis Neg Hx Scoliosis Neg Hx Relation Name Status Comments Mother Social History Tobacco Use Types Packs/Day Years Used Date Smoking Tobacco: Former Smokeless Tobacco: Never Comments:stopped 26 years ag o. 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 Gender Identity Not on file Sexual Orientation Not on file Obstetrics History Last Filed Vital Signs Vital Sign Reading [...] 01/12/2024 1:38 PM CDT Plan of Treatment Health Maintenance Due Date Last Done Comments Breast Cancer Screening-Mammogram 1964 Cervical Cancer Screening 1964 Colon Cancer Screening-Colonoscopy 1964 Depression Screening 1964 Hepatitis C Screening 1964 Hepatitis B Screening 1982 Regular Well Visit/Exam 18-64 1982 Zoster Vaccine (1 of 2) 2014 Covid-19 Vaccine ( season) 2024 06/17/2021, 09/11/2020, 08/14/2020 Influenza Vaccine (#1) 2024 , 05/16/2019, 05/04/2018, Additional history exists DTaP/Tdap/Td Vaccine (2 - Td or Tdap) 08/24/2029 08/25/2019 Pneumococcal vaccine <65 Aged Out No longer eligible based on patient's age to complete this topic Insurance [facility] [employer] CHOICE [facility] ACCESS CHOICE Care Teams Brake Drum Lathe Operator Relationship Specialty Start Date End Date Hamlet Garcia MD [address] [id number] PCP - General Obstetrics and Gynecology 01/12/24
--- OUTSIDE RECORDS SUMMARY | 2024-08-13 17:16 | XMS_ITS | Encounter Summary ---
Author Organization [facility] Address [address] [facility] [place] [address] Care Team Providers Care Filing And Polishing Supervisor Name Role Phone Unavailable Primary Care Provider Unavailabl e Encounter Details Date Type Department Care Team (Late st Contact Info) Description 04/21/2023 Lab Requisition [facility] - DermPath Lab [address] [place] [address] Kallie Allen MD [address] [facility] [address] [place] [address] Social History Tobacco Use Types Packs/Day Years Used Date Smoking Tobacco: Never Assessed Sex and Gender Information Value Date Recorded Sex Assigned at Not on file Gender Identity Not on file Sexual Orientation Not on file documented as of this encounter Plan of Treatment Not on file documented as of this encounter Procedures Procedure Name Priority Date/Time Associated Diagnosis Comments DERMATOPATHOLOGY Routine 04/21/2023 9:46 AM CDT documented in this encounter Results * DERMATOPATHOLOGY (04/21/2023 9:46 AM CDT) Case Report Dermatopathology Report Case: [id number] Authorizing Provider: Kallie Allen MD Collected: 04/21/2023 09:46 AM Ordering Location: [facility] DermPath Lab Received: 04/22/2023 12:17 PM Pathologist: iKng Youssef MD Specimen: Skin, left forearm 3 2:51 PM [facility] Final Diagnosis Specimen A. 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 The specimen consists of a shave biopsy measuring 8x8x2 mm. Jar 0. 3 2:51 PM [facility] DERMATOPATHOLOGY LABORATORY Microscopic Description Specimen A. SKIN, left forearm: In the reticular dermis, there are vascular spaces surrounded by round monomorphous glomus cells with indistinct cell boundaries. ERG highlights the vascular spaces. Smooth muscle actin is positive in the tumor cells. Desmin is non-reactive in the tumor cells. COMMENT: This case was also reviewed by Dr. Kena Torre. 3 2:51 PM [facility] DERMATOPATHOLOGY LABORATORY Disclaimer An external and internal positive and negative controls are appropriate for the histochemical, immunohistochemical and immunofluorescence stain(s) in this case (if any), except where stated explicitly. The performance characteristics of the stain(s) cited in this report were developed and its performance characteristic determined by the Dermatopathology Laboratory at [facility], directed by Dr. Neto Youssef. These tests need not be, and therefore are not, approved by the [place] Food and Drug Administration. The tests are used for clinical purposes. Billing Codes Specimen Charges Stain Charges 50159 1 [id number] [id number] 1 1 1 3 2:51 PM [facility] DERMATOPATHOLOGY [facility]ORATORY Embedded Images 3 2:51 PM [facility] DERMATOPATHOLOGY LABORATORY Pathology/Cytolo gy TISSUE SPECIMEN FROM SKIN / Unknown 04/21/2023 9:46 AM CDT 04/22/2023 12:17 PM CDT Kallie Allen MD LAB - PATHOLOGY/CYTO LOGY ORDERABLES DERMATOPATHOLOGY LABORATORY [facility] - Department of Dermatology [address], [address] [phone] documented in this encounter Visit Diagnoses Not on filedocumented in this encounter
--- OUTSIDE RECORDS SUMMARY | 2024-08-13 17:16 | XMS_ITS | Clinical Summary ---
Author Organization [facility] Address [address] [facility] [place] [address] Care Team Providers Care Artificial Stone Applicator Name Role Phone Unavailable Primary Care Provider Unavailabl e Source Comments [facility],non-owned Affiliates and Associated Physician Practices is amultiple site organization consisting of ambulatory clinics and hospital sitesin [place], [place], [place] and [place]. This disclosure is being madepursuant to the Care Everywhere program and may not contain all information available regarding this patient. Last updated 18.[facility] [employer] Social History Tobacco Use Types Packs/Day Years Used Date Smoking Tobacco: Never Assessed Sex and Gender Information Value Date Recorded Sex Assigned at Not on file Gender Identity Not on file Sexual Orientation Not on file Plan of Treatment Health Maintenance Due Date Last Done Comments COLOGUARD (AGES 45-75) - COL ON CA SCREENING 1964 COLON MONITORING 1964 COLONOSCOPY - COLON CA SCREENING 1964 CT COLONOGRAPHY - COLON CA SCREENING 1964 Colorectal Cancer Screening 1964 FIT - COLON CA SCREENING 1964 FLEX SIG - COLON CA SCREENING 1964 LIPID TESTING 1964 MAMMOGRAM 1964 PAP SMEAR 1964 HIV SCREENING 01/01/1980 HEPATITIS C SCREENING 12/27/1982 DTAP/TDAP/TD VACCINES (1 - Tdap) 01/01/1984 HEPATITIS B VACCINE (1 of 3 - 19+ 3-dose series) 01/01/1984 PNEUMOCOCCAL VACCINE 50+ (1 of 1 - PCV) 2014 ZOSTER VACCINE (1 of 2) 2014 COVID-19 VACCINE ( - 2023-2 5 season) 2024 INFLUENZA VACCINE (#1) 2024 DEPRESSION SCREENING 06/21/2024 HIB VACCINE Aged Out No longer eligi ble based on patient's age to complete this topic HPV VACCINE Aged Out No longer eligi ble based on patient's age to complete this topic MENINGOCOCCAL (Group B) VACCINE Aged Out No longer eligible based on patient's age to complete this topic MENINGOCOCCAL VACCINE Aged Out No monie theodore eligible based on patient's age to complete this topic PNEUMOCOCCAL VACCINE Aged Out No long er eligible based on patient's age to complete this topic
--- OUTSIDE RECORDS SUMMARY | 2024-08-13 17:16 | XMS_ITS | Referral Summary ---
Author Organization [facility] Address [address] [facility] [place] [address] Care Team Providers Care Trade Mark Attorney Name Role Phone Unavailable Primary Care Provider Unavailabl e Source Comments [facility],non-owned Affiliates and Associated Physician Practices is amultiple site organization consisting of ambulatory clinics and hospital sitesin [place], [place], [place] and [place]. This disclosure is being madepursuant to the Care Everywhere program and may not contain all information available regarding this patient. Last updated 18.[facility] Social History Tobacco Use Types Packs/Day Years Used Date Smoking Tobacco: Never Assessed Sex and Gender Information Value Date Recorded Sex Assigned at Not on file Gender Identity Not on file Sexual Orientation Not on file Plan of Treatment Not on file
--- OUTSIDE RECORDS SUMMARY | 2024-08-13 17:16 | XMS_ITS | Patient Health Summary ---
Author Organization [facility] Address [address] [place] [address] Care Team Providers Care Industrial Psychology Professor Name Role Phone Unavailable Primary Care Provider Unavailabl e Note from [facility],non-owned Affiliates and Associated Physician Practices is amultiple site organization consisting of ambulatory clinics and hospital sitesin [place], [place], [place] and [place]. This disclosure is being madepursuant to the Care Everywhere program and may not contain all information available regarding this patient. Last updated 18.[facility] Social History Tobacco Use Types Packs/Day Years Used Date Smoking Tobacco: Never Assessed Sex and Gender Information Value Date Recorded Sex Assigned at Not on file Gender Identity Not on file Sexual Orientation Not on file Procedures * DERMATOPATHOLOGY(Performed 04/21/2023) * DERMATOPATHOLOGY(Performed 04/16/2021) Results * DERMATOPATHOLOGY (04/21/2023 9:46 AM CDT) Only the most recent of2 resultswithin the time period is included. Case Report Dermatopathology Report Case: [id number] Authorizing Provider: Kallie Allen MD Collected: 04/21/2023 09:46 AM Ordering Location: [facility] DermPath Lab Received: 04/22/2023 12:17 PM Pathologist: King Youssef MD Specimen: Skin, left forearm 3 2:51 PM HEARING THERAPY TEACHER DERMATOPATHOLOGY LABORATORY Final Diagnosis Specimen A. 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 The specimen consists of a shave biopsy measuring 8x8x2 mm. Jar 0. 3 2:51 PM [facility] DERMATOPATHOLOGY LABORATORY Microscopic Description Specimen A. SKIN, left forearm: In the reticular dermis, there are vascular spaces surrounded by round monomorphous glomus cells with indistinct cell boundaries. ERG highlights the vascular spaces. Smooth muscle actin is positive in the tumor cells. Desmin is non-reactive in the tumor cells. COMMENT: This case was also reviewed by Dr. Kena Torre. 3 2:51 PM [facility] DERMATOPATHOLOGY LABORATORY Disclaimer An external and internal positive and negative controls are appropriate for the histochemical, immunohistochemical and immunofluorescence stain(s) in this case (if any), except where stated explicitly. The performance characteristics of the stain(s) cited in this report were developed and its performance characteristic determined by the Dermatopathology Laboratory at [facility], directed by Dr. Neto Youssef. These tests need not be, and therefore are not, approved by the [place] Food and Drug Administration. The tests are used for clinical purposes. Billing Codes Specimen Charges Stain Charges 80738 1 [id number] 1 1 1 3 2:51 PM [facility] DERMATOPATHOLOGY LABORATORY Embedded Images 3 2:51 PM [facility] DERMATOPATHOLOGY LABORAT[facility] Pathology/Cytolo gy TISSUE SPECIMEN FROM SKIN / Unknown 04/21/2023 9:46 AM CDT 04/22/2023 12:17 PM CDT Kallie Allen MD LAB - PATHOLOGY/CYTO LOGY ORDERABLES DERMATOPATHOLOGY LABORATORY [facility] - Department of Dermatology [address] [phone]
--- OUTSIDE RECORDS SUMMARY | 2024-08-13 17:16 | XMS_ITS | Encounter Summary ---
Author Organization [facility] Address [address] [place] [address] Phone Care Team Providers Care Disk Recoater Name Role Phone Miscellaneous, Not In File Primary Care Provider Unavailable Alpesh Beyer DO Primary Care Provider [phone] Hamlet Garcia MD Primary Care Provider [phone] Encounter Details Date Type Department Care Team (Late st Contact Info) Description 01/20/2021 Orders Only [facility] Scanning, Provider Social History Tobacco Use Types Packs/Day Years Used Date Smoking Tobacco: Never Assessed Comments Unknown Sex and Gender Information Value Date Recorded Sex Assigned at Not on file 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 Gender Identity Not on file Sexual Orientation Not on file documented as of this encounter Plan of Treatment Not on file documented as of this encounter Procedures Procedure Name Priority Date/Time Associated Diagnosis Comments SCAN - RADIOLOGY/IMAGING 01/20/2021 documented in this encounter Results * SCAN - RADIOLOGY/IMAGING (01/20/2021) Anatomical Region Laterality Modality Other us Provider Scanning Final Result documented in this encounter Visit Diagnoses Not on filedocumented in this encounter Care Teams Disk Recoater Relationship Specialty Start Date End Date Miscellaneous, Not In File PCP - General 04/04/21 12/23/21 Alpesh Beyer DO PCP - General Internal Medicine 12/24/21 01/11/24 Hamlet Garcia MD [address] [address] PCP - General Obstetrics and Gynecology 01/12/24 documented as of this encounter
[2024-08-13 17:37] VITALS: BP 140/81; PULSE 79; RESP 18; TEMP 37.3; O2SAT 100
--- NOTE | 2024-08-13 17:47 | ED.URI ---
HPI - URI/Sore Throat General Chief Complaint: Upper Respiratory Infection Stated Complaint: sinus inefection /lung pain/head pressure Time Seen by Provider: 08/13/24 17:47 Source: patient and RN notes reviewed Mode of arrival: ambulatory Limitations: no limitations History of Present Illness HPI Narrative: 58-year-old female presented for complaint of headache, body aches, sinus pressure/congestion, cough, fever/chills. Onset 2 days. Endorses a cough is painful. Taking Sudafed. Denies sob, wheezing, n/v/d. MD elicited complaint: cough Related Data Home Medications ?Medication ?Instructions ?Recorded ?Confirmed ?Last Taken ?Type multivitamin (Multiple Vitamins 1 tablet PO DAILY 09/25/20 06/07/23 Unknown History tablet) raloxifene 60 mg tablet 60 mg PO DAILY 02/25/22 06/07/23 Unknown History calcium 600 mg (as 1 cap PO DAILY 10/07/22 06/07/23 Unknown History carbonate)-vitamin D3 12.5 mcg (500 unit) capsule glucosamine 750 mg-chondroit 100 1 tablet PO DAILY 10/07/22 06/07/23 Unknown History mg-msm-D3 25 zhq-iixo-nzn bor tablet Allergies Allergy/AdvReac Type Severity Reaction Status Date / Time codeine AdvReac Intermediate Dizziness Verified 08/13/24 17:35 Review of Systems Review of Systems: Per HPI [facility] Past Medical History Medical History Acid reflux History of 1978 Osteoporosis Vaginal delivery x1 Surgical History Surgical History H/O breast biopsy [place] teeth removed Family History Family History Mother Hypertension Family history of malignant neoplasm of breast in first degree relative Father Family history of gastrointestinal disorder Hypertension Grandparent Carcinoma, lung Hypertension Social History Social History Smoking packs per day: 1 Smoking cigarettes per day: 20.0 Years smoked: 15 Smoking pack-years: 15.00 Smoking status: Former smoker Tobacco type: cigarettes Second hand tobacco smoke exposure: No Smoking end date: 02/20/96 Alcohol intake: current Drinks per week: 4 Alcohol use details: occasionally, wine Substance use: never Substance use type: does not use Do You Feel Safe in your Home?: Yes Lack of Transportation: No Lack of Food: Never True Current Housing: I Have Housing Concerned About Future Housing: No Difficulty Paying Gas/Electric Bills: No Difficulty Paying for Meds: No Currently Unemployed: No Education: High School Diploma/GED Difficulty w/ Childcare or Family Care: No Living arrangements: with family Spiritual care concerns: No Exam Narrative: GENERAL: mildly Ill-appearing, nontoxic no acute distress. EYES: PERRLA, conjunctivae clear ENT: Mucous membranes moist. TM pearly [place] with dull light reflex bilaterally; no tragal tenderness. Oropharynx erythematous without lesions or exudate, no drooling, no hoarseness, no trismus, uvula midline. No tripod positioning, muffled voice, soft palate or pharyngeal wall bulging CHEST: Clear to auscultation, breath sounds equal. HEART: Regular rate and rhythm. No murmur heard. SKIN: Warm, dry, no rash. NEURO: Alert and oriented x3. PSYCH: Normal mood and affect Course Course Emergency Course: Patient is aware of diagnosis, understands and agrees to treatment plan. Anticipatory guidance given. Patient agrees to follow-up as directed and is aware of reasons to seek care at the emergency department. Portions of this record may have been created with voice recognition software Level of Care: Express Care Visit Vital Signs Vital signs: Vital Signs Temperature 99.1 F 08/13/24 17:37 Pulse Rate 79 08/13/24 17:37 Respiratory Rate 18 08/13/24 17:37 Blood Pressure 140/81 08/13/24 17:37 Pulse Oximetry 100 08/13/24 17:37 Oxygen Delivery Room Air 08/13/24 17:37 Temperature 99.1 F 08/13/24 17:37 Pulse Rate 79 08/13/24 17:37 Respiratory Rate 18 08/13/24 17:37 Blood Pressure 140/81 08/13/24 17:37 Pulse Oximetry 100 08/13/24 17:37 Oxygen Delivery Room Air 08/13/24 17:37 reviewed MDM - URI/Sore Throat MDM Narrative Medical decision making narrative: POS flu. Discussed physical exam findings. Advised supportive measures and signs/symptoms to go to the ER. Pt is appropriate for outpt treatment and f/u. Differential Diagnosis Differential diagnosis: Likely upper respiratory infection, sinusitis and viral infection Discharge Plan Discharge Clinical Impression: Influenza Patient Disposition: Home, Self-Care Condition: Stable Instructions: Influenza (ED) Additional Instructions: Influenza positive You should avoid crowds until you are fever free for 24 hours without the use of fever reducing medications, or the symptoms are improved Rest. Drink plenty of fluids. Tylenol 1000mg every 8 hours as needed for pain/fever Flonase spray and Zyrtec (or Claritin/Cynthia) for sinus pressure/congestion over the counter Cough syrup may cause drowsiness; avoid driving or take it at night time. Follow up with your primary care provider as needed Go to the ER for worsening symptoms or concerns Patient Language: Gabonese Prescriptions: No Action multivitamin [Multiple Vitamins] Tablet 1 tablet PO DAILY vvje-[id number]-tvt-[id number]-hyal-mt bor 750 mg-100 mg- 25 mcg tablet 1 tablet PO DAILY calcium carbonate-vitamin D3 600 mg-12.5 mcg (500 unit) capsule 1 cap PO DAILY raloxifene 60 mg tablet 60 mg PO DAILY Follow-up/Referrals: Ayanna Roman APRN [Primary Care Provider] - Stand Alone Forms: Work/School Release IP Time of Disposition: 17:55
[2024-08-13 17:50] LABS: EDCOVIDSCREEN Negative (Negative); EDINFLUASCREEN Positive (Negative); EDINFLUBSCREEN Negative (Negative)
== END 2024-08-13 17:59 | disposition home or self-care (01) ==
PROVIDERS: Emergency Provider Nurse Practitioner Family; PCP Nurse Practitioner Family
DX: J10.1 Influenza due to other identified influenza virus with other respiratory manifestations (principal); Z20.822 Contact with and (suspected) exposure to COVID-19; K21.9 Gastro-esophageal reflux disease without esophagitis; M81.0 Age-related osteoporosis without current pathological fracture; Z87.891 Personal history of nicotine dependence
CPT/HCPCS: 87426; 87804; 99212; G0463